=== PATIENT | female | born 1990 | race African-American/Black ===

== ENCOUNTER 2016-05-22 21:02 | Emergency (ER) | payer OTHER ==
[2016-05-22 21:40] VITALS: BP 141/98
[2016-05-22] MEDS ORDERED: Morphine INJ* 2 MG/ML 1 ML CARPUJECT IV ONE (22:17)
[2016-05-22] MEDS ORDERED: NS 0.9% 1000 ML* 1,000 ML IV ONE (22:17)
--- NOTE | 2016-05-22 22:38 | UC ---
Shashi Leroy Janilya, scribed for Megan Davis MD on 05/22/16 at 2213 . Abdominal Pain Female HPI - HPI Summary HPI Summary: A 25 y/o female came in to [facility] presenting w/ a sudden onset of waxing and waning abd pain that started about an hour ago. Pt states she was eating when she suddenly felt intense abd cramps lasting 15-20 sec. Severity rated 7/10. To alleviate the pain during her episodes, pt bends over and stays in that crouching position. When the episode ends, pt states there is still some residual pain in the lower back. There is also some notable bloating. Pt denies n/v/d, vaginal bleeding/discharge. Last bowel movement was mid-day today. At [facility] here, pt had a few such episodes. The last one lasted for about 30 sec, during which pt crouched over and could not speak. SHx gallbladder removal Dec 2015, gastric bypass Feb 2013. No SHx of appendix removal. Pt had IUD placed in 2014. She states she can still feel the IUD strings in place. - History of Current Complaint Chief Complaint: UCAbdominalPain Stated Complaint: abdominal pain Time Seen by Provider: 05/22/16 21:45 Hx Obtained From: Patient Hx Last Menstrual Period: IUD Onset/Duration: Sudden Onset, Lasting Hours, Still Present Timing: Intermittent Episodes Lasting: - 15-30 sec Severity Initially: Moderate Severity Currently: Moderate Pain Intensity: 7 Pain Scale Used: 0-10 Numeric Location: Diffuse Radiates: Yes Radiates to: Back Character: Cramping Aggravating Factor(s): Nothing Alleviating Factor(s): Position - crouched over position Associated Signs and Symptoms: Positive: Back Pain. Negative: Vaginal Bleeding , Vaginal Discharge, Nausea, Vomiting, Diarrhea - Risk Factors Ectopic Risk Factor: Negative Ovarian Torsion Risk Factor: Reproductive Age Allergies/Adverse Reactions: Allergies Allergy/AdvReac Type Severity Reaction Status Date / Time NSAIDs Allergy Unknown Verified 01/09/16 11:02 Reaction Details KIWI AND PAPAYA Allergy HIVES Uncoded 01/09/16 11:02 AROUND THE FACE Home Medications: Home Medications Atenolol TAB* [Tenormin TAB* 25 MG] 25 mg PO DAILY 05/22/16 [History Confirmed 05/22/16] PMH/Surg Hx/FS Hx/Imm Hx Previously Healthy: Yes Cardiovascular History Of: Reports: Hypertension Respiratory History Of: Reports: Asthma, Bronchitis Neurological History Of: Reports: Migraine - 1-2 TIMES A MONTH Psychological History Of: Reports: Anxiety, Depression - Surgical History Surgical History: Yes Surgery Procedure, Year, and Place: GASTRIC BYPASS FEB 2013. Subha 2015. WISDOM TEETH REMOVAL. ADENOIDS AND TONSILLS REMOVED- A CHILD - Family History Known Family History: Positive: Cardiac Disease, Hypertension, Diabetes Negative: Other - malignant hyperthermia, anesthesia reaction. - Social History Lives: With Family Alcohol Use: None Alcohol Amount: quit 1 week ago Substance Use Type: None Smoking Status (MU): Former Smoker Type: Cigarettes Amount Used/How Often: 6-7 CIGARETTES PER DAY X 6-7 YEARS Length of Time of Smoking/Using Tobacco: 9 Have You Smoked in the Last Year: Yes When Did the Patient Quit Smoking/Using Tobacco: 11/2015 Household Exposure Type: Cigarettes - Immunization History Most Recent Influenza Vaccination: Fall 2014 Most Recent Tetanus Shot: 07/2010 Most Recent Pneumonia Vaccination: NONE Review of Systems Constitutional: Negative Skin: Negative Eyes: Negative ENT: Negative Respiratory: Negative Cardiovascular: Negative Gastrointestinal: Negative - pt denies n/v/d, Abdominal Pain - intense cramping and bloating Genitourinary: Negative - pt denies vaginal bleeding Motor: Negative Neurovascular: Negative Musculoskeletal: Negative Neurological: Negative Psychological: Negative All Other Systems Reviewed And Are Negative: Yes Physical Exam Triage Information Reviewed: Yes Appearance: Well-Nourished, Ill-Appearing, Pain Distress Vital Signs: Initial Vital Signs Temp 98.5 F 05/22/16 21:34 Pulse 89 05/22/16 21:34 Resp 20 05/22/16 21:34 BP 141/98 05/22/16 21:34 Pulse Ox 100 05/22/16 21:34 elevated BP noted Vital Signs Reviewed: Yes Eyes: Positive: Conjunctiva Clear ENT: Positive: Normal ENT inspection Neck: Positive: Supple Respiratory: Positive: Lungs clear, Normal breath sounds, No respiratory distress Cardiovascular: Positive: RRR, No Murmur, Pulses Normal, Brisk Capillary Refill Abdomen Description: Positive: No Organomegaly, Soft, Distended, Guarding, Other : - Mild diffuse tenderness. Negative: Nontender, CVA Tenderness (R), CVA Tenderness (L), McBurney's Point Tenderness, Peritoneal Signs, Pulsatile Mass Bowel Sounds: Positive: Present, Hypoactive Musculoskeletal: Positive: Strength Intact, ROM Intact Neurological: Positive: Alert, Muscle Tone Normal Psychological Exam: Normal Skin Exam: Normal Abd Pain Female Course/Dx - Course Course Of Treatment: with pt's prior surgs she may have bowel obstruction. Also with her IUD, she may have perforation or migration of IUD causing symptoms. UA neg. UCG neg. Pt given morphine 4mg IV for pain with IVNS - Differential Dx/Diagnosis Differential Diagnosis: Appendicitis, Bowel Obstruction, Constipation, Ovarian Cyst, Renal Colic, Urinary Tract Infection, Other - perforation Provider Diagnoses: acute abdominal pain - Physician Notification/Consults Time Discussed With Above Provider: 22:25 - Dr. Jimenez Instructed by Provider To: MD Will See In ED Discharge - Discharge Plan Condition: Stable Disposition: TRANS HIGHER LVL OF CARE FAC Discharge Disposition Comment: transfer to [facility] [place] by ambulance Referrals: Merissa Stephenson DO [Primary Care Provider] - The documentation as recorded by the Shashi smith Janilya accurately reflects the service I personally performed and the decisions made by , Megan Davis MD.
== END 2016-05-22 22:54 | disposition short-term general hospital (02) ==
LOC: UCEAST 21:02
DX: R10.84 Generalized abdominal pain (principal); M54.9 Dorsalgia, unspecified; Z32.02 Encounter for pregnancy test, result negative; I10 Essential (primary) hypertension; Z90.49 Acquired absence of other specified parts of digestive tract; Z98.84 Bariatric surgery status; Z97.5 Presence of (intrauterine) contraceptive device; Z88.6 Allergy status to analgesic agent; Z87.891 Personal history of nicotine dependence
CPT/HCPCS: 81002; 81025; 96360; 96361; 96374; 99213; G0463; J2270

== ENCOUNTER 2016-05-22 23:06 | Emergency (ER) | payer OTHER ==
[2016-05-22] MEDS ORDERED: NS 0.9% 1000 ML* 1,000 ML IV ONE (23:21)
[2016-05-22 23:57] VITALS: BP 143/93
--- NOTE | 2016-05-23 00:09 | ED ---
Teddy Leroy Benjamin, scribed for Boaz Jimenez MD on 05/22/16 at 2325 . Abdominal Pain/Female - HPI Summary HPI Summary: 25yo female c/o sudden abdominal cramps during dinner today around 2029. Pt went to and was given morphine for her pain, which the pt states helped with her pain. Pt reports bloated stomach but denies nausea. No prior similar symptoms. Pt has hx of gastric bypass here at [facility] [place] by Dr. Willis on 2012. - History of Current Complaint Stated Complaint: ABD PAIN Time Seen by Provider: 05/22/16 23:18 Hx Obtained From: Patient Hx Last Menstrual Period: IUD ?: No Onset/Duration: Sudden Onset, Lasting Hours, Still Present Timing: Constant Severity Initially: Moderate Severity Currently: Mild Location: Diffuse Radiates: No Character: Cramping Aggravating Factor(s): Nothing Alleviating Factor(s): Medications - morphine Associated Signs and Symptoms: Positive: Negative. Negative: Nausea Allergies/Adverse Reactions: Allergies Allergy/AdvReac Type Severity Reaction Status Date / Time NSAIDs Allergy Unknown Verified 01/09/16 11:02 Reaction Details KIWI AND PAPAYA Allergy HIVES Uncoded 01/09/16 11:02 AROUND THE FACE PMH/Surg Hx/FS Hx/Imm Hx Endocrine/Hematology History: Reports: Hx Anemia - takes daily iron Denies: Hx Diabetes Cardiovascular History: Reports: Hx Hypertension Denies: Hx Congestive Heart Failure, Hx Pacemaker/ICD Respiratory History: Reports: Hx Asthma History: Denies: Hx Renal Disease Musculoskeletal History: Reports: Other Musculoskeletal History - HX OF BILATERAL KNEE PAIN Sensory History: Denies: Hx Contacts or Glasses, Hx Hearing Aid Opthamlomology History: Denies: Hx Contacts or Glasses Neurological History: Reports: Hx Migraine - 1-2 TIMES A MONTH Psychiatric History: Reports: Hx Anxiety, Hx Depression, Other Psychiatric Issues/Disorders - bipolar disorder Denies: Hx Panic Disorder - Surgical History Surgery Procedure, Year, and Place: GASTRIC BYPASS FEB 2013. Subha 2016. WISDOM TEETH REMOVAL. ADENOIDS AND TONSILLS REMOVED- A CHILD Hx Anesthesia Reactions: No - Family History Known Family History: Positive: None - negative malignant hyperthermia. negative anesthesia reaction., Cardiac Disease, Hypertension, Diabetes Negative: Other - malignant hyperthermia, anesthesia reaction. - Social History Alcohol Use: None Alcohol Amount: quit 1 week ago Substance Use Type: Reports: None Smoking Status (MU): Former Smoker Type: Cigarettes Amount Used/How Often: 6-7 CIGARETTES PER DAY X 6-7 YEARS Length of Time of Smoking/Using Tobacco: 9 Have You Smoked in the Last Year: Yes Review of Systems Constitutional: Negative Eyes: Negative ENT: Negative Cardiovascular: Negative Respiratory: Negative Positive: Other - abdominal cramps. Negative: Nausea Genitourinary: Negative Musculoskeletal: Negative Skin: Negative Neurological: Negative Psychological: Normal All Other Systems Reviewed And Are Negative: Yes Physical Exam Triage Information Reviewed: Yes Vital Signs On Initial Exam: Initial Vitals Temp Pulse Resp BP Pulse Ox 97.6 F 76 16 143/93 100 05/22/16 23:20 05/22/16 23:20 05/22/16 23:20 05/22/16 23:20 05/22/16 23:20 Vital Signs Reviewed: Yes Appearance: Positive: Well-Appearing, No Pain Distress Skin: Positive: Warm Head/Face: Positive: Normal Head/Face Inspection Eyes: Positive: ESTEFANIA ENT: Positive: Hearing grossly normal Neck: Positive: Supple Respiratory/Lung Sounds: Positive: Clear to Auscultation, Breath Sounds Present Cardiovascular: Positive: RRR Abdomen Description: Positive: Nontender, Soft. Negative: Distended, Guarding Bowel Sounds: Positive: Present Musculoskeletal: Positive: Strength/ROM Intact Neurological: Positive: Alert, Oriented to Person Place, Time Psychiatric: Positive: Affect/Mood Appropriate Diagnostics - Vital Signs Vital Signs Temp Pulse Resp BP Pulse Ox 05/22/16 23:20 97.6 F 76 16 143/93 100 - Laboratory Result Diagrams: 05/23/16 00:15 05/23/16 00:15 Lab Statement: Any lab studies that have been ordered have been reviewed, and results considered in the medical decision making process. Re-Evaluation - Re-Evaluation First Eval Change: Improved Abdominal Pain Fem Course/Dx - Diagnoses Provider Diagnoses: Abdominal pain Discharge - Discharge Plan Condition: Stable Disposition: HOME Patient Education Materials: Abdominal Pain (ED) Referrals: Merissa Stephenson DO [Primary Care Provider] - The documentation as recorded by the Teddy smith Benjamin accurately reflects the service I personally performed and the decisions made by me, Boaz Jimenez MD.
[2016-05-23 00:37] LABS: Hematocrit 36 % (35-47); Hemoglobin 11.8 g/dl (12.0-16.0); Mean Corpuscular HGB Conc 33 g/dl (31-36); Mean Corpuscular Hemoglobin 29 pg (27-31); Mean Corpuscular Volume 87 fL (80-97); Mean Platelet Volume 8 um3 (7.4-10.4); Red Blood Count 4.08 10^6/ul (4.0-5.4); Red Cell Distribution Width 16 % (10.5-15); White Blood Count 4.9 10^3/ul (3.5-10.8)
[2016-05-23 00:55] LABS: ALT 29 U/L (7-52); AST 39 U/L (13-39); Albumin 3.7 g/dL (3.2-5.2); Alkaline Phosphatase 51 U/L (34-104); Anion Gap 6 mmol/L (2-11); Blood Urea Nitrogen 9 mg/dL (6-24); C Reactive Protein < 1.00 mg/L (< 5.00); CO2 Carbon Dioxide 26 mmol/L (22-32); Calcium 8.8 mg/dL (8.6-10.3); Chloride 104 mmol/L (101-111); EGFR Non-African American 138.4 (>60); Globulin 2.7 g/dL (2-4); Glucose 95 mg/dL (70-100); Lipase 26 U/L (11.0-82.0); Potassium 4.3 mmol/L (3.5-5.0); Sodium 136 mmol/L (133-145); Total Protein 6.4 g/dL (6.4-8.9)
== END 2016-05-23 01:40 | disposition home or self-care (01) ==
LOC: ED 23:06
DX: R10.9 Unspecified abdominal pain (principal); Z87.891 Personal history of nicotine dependence
CPT/HCPCS: 36415; 80053; 83605; 83690; 85025; 86140; 99282